=== PATIENT | female | born 1960 | race Caucasian/White ===

== ENCOUNTER 2017-04-19 20:54 | Inpatient (IN) | payer OTHER, BC ==
[~2017-04-19] VITALS: Ht 167.6 cm; Wt 124.2 kg
[2017-04-19 21:09] VITALS: O2SAT 100
[2017-04-19] MEDS ORDERED: DIPHTH/TETANUS/ACEL PERTUSSIS (BOOSTER) 0.5 ML VIAL/PFS IM ONE (21:13)
[2017-04-19] MEDS ORDERED: ceFAZolin 2 GM PREMIX 50 ML ONE (21:13)
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
[2017-04-19] MEDS ORDERED: IOHEXOL 350 MG/ML 10 ML VIAL (for RAD DIAG) IVCONTRAST ONE (21:43)
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
[2017-04-19 21:54] LABS: AUTOMATED NEUTROPHIL # 13.3 TH/MM3 (1.8-7.7); BASOPHIL # 0.1 TH/MM3 (0-0.2); BASOPHIL % 0.7 % (0.0-2.0); EOSINOPHIL # 0.3 TH/MM3 (0-0.4); EOSINOPHIL % 1.7 % (0.0-4.0); HEMOGLOBIN 16.6 GM/DL (11.6-15.3); LYMPH % 16.6 % (9.0-44.0); LYMPHOCYTE # 2.9 TH/MM3 (1.0-4.8); MEAN CELL VOLUME 90.7 FL (80.0-100.0); MEAN CORPUSCULAR HEMOGLOBIN 31.5 PG (27.0-34.0); MEAN CORPUSCULAR HGB CONC 34.7 % (32.0-36.0); MEAN PLATELET VOLUME 11.1 FL (7.0-11.0); MONO % 6.1 % (0.0-8.0); MONOCYTE # 1.1 TH/MM3 (0-0.9); NEUT % 74.9 % (16.0-70.0); PLATELET COUNT 289 TH/MM3 (150-450); RED BLOOD COUNT 5.29 MIL/MM3 (4.00-5.30); RED CELL DISTRIBUTION WIDTH 13.9 % (11.6-17.2); WHITE BLOOD COUNT 17.7 TH/MM3 (4.0-11.0)
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
[2017-04-19 22:04] VITALS: O2SAT 95
[2017-04-19 22:04] LABS: PROTHROMBIN TIME - PATIENT 10.2 SEC (9.8-11.6)
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
[2017-04-19] MEDS ORDERED: LIDOCAINE 2%/EPINEPHrine 1:100,000 20ML MDV NERV BLOCK ONE (22:15)
[2017-04-20] VITALS (8 sets, daily range): BP systolic 110–135; BP diastolic 57–76; PULSE 71–90; RESP 17–19; TEMP 95.5–98.2; O2SAT 95–99
[2017-04-20] MEDS ORDERED: MISCELLANEOUS NURSING INFORMATION XX SCH
[2017-04-20] MEDS ORDERED: CHLORHEXIDINE GLUCONATE 2 % 1 PACK (2 CLOTHS) TOP PRN
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
[2017-04-20] MEDS ORDERED: HYDROmorphone HCL PF 2 MG/ML VIAL IV PUSH PRN (00:15)
[2017-04-20] MEDS: KETOROLAC TROMETHAMINE 30 MG/ML (IVP) VIAL IVP SCH ×4 (00:26→17:15)
[2017-04-20] MEDS: LACTATED RINGER'S 1000 ML INJ 1,000 ML IV SCH ×3 (00:26→17:19)
[2017-04-20] MEDS ORDERED: LACTATED RINGER'S 1000 ML IV PRN (03:30)
[2017-04-20] MEDS ORDERED: POVIDONE IODINE 5% (ANTISEPSIS KIT) 4 APPLICATIONS EACH NARE PRN (03:30)
[2017-04-20] MEDS ORDERED: CHLORHEXIDINE GLUCONATE 2 % 1 PACK (2 CLOTHS) TOPICAL PRN (03:30)
[2017-04-20] MEDS ORDERED: CHLORHEXIDINE GLUCONATE 2 % 1 PACK (2 CLOTHS) TOP SCH (04:00)
[2017-04-20] MEDS ORDERED: LACTULOSE SYRUP 20 GM/30 ML CUP PO PRN (07:00)
[2017-04-20] MEDS: DOCUSATE SODIUM 50 MG/SENNA 8.6 MG TAB PO SCH ×2 (09:00→21:54)
[2017-04-20] MEDS ORDERED: DOCUSATE SODIUM 100 MG CAP PO SCH (09:00)
[2017-04-20 10:49] LABS: AUTOMATED NEUTROPHIL # 4.3 TH/MM3 (1.8-7.7); BASOPHIL % 0.5 % (0.0-2.0); EOSINOPHIL % 0.5 % (0.0-4.0); HEMATOCRIT 37.6 % (35.0-46.0); HEMOGLOBIN 13.1 GM/DL (11.6-15.3); LYMPH % 23.5 % (9.0-44.0); LYMPHOCYTE # 1.6 TH/MM3 (1.0-4.8); MEAN CORPUSCULAR HEMOGLOBIN 31.9 PG (27.0-34.0); MEAN CORPUSCULAR HGB CONC 34.7 % (32.0-36.0); MEAN PLATELET VOLUME 10.1 FL (7.0-11.0); MONO % 13.1 % (0.0-8.0); MONOCYTE # 0.9 TH/MM3 (0-0.9); NEUT % 62.4 % (16.0-70.0); PLATELET COUNT 199 TH/MM3 (150-450); RED BLOOD COUNT 4.09 MIL/MM3 (4.00-5.30); RED CELL DISTRIBUTION WIDTH 13.3 % (11.6-17.2); WHITE BLOOD COUNT 6.9 TH/MM3 (4.0-11.0)
[2017-04-20 11:17] LABS: BICARBONATE 27.1 MEQ/L (21.0-32.0); CALCIUM 8.7 MG/DL (8.5-10.1); CREATININE 0.69 MG/DL (0.50-1.00)
[2017-04-20] MEDS ORDERED: BUPIVACAINE HCL PF 0.25% 30 ML VIAL ONE (11:25)
[2017-04-20] MEDS ORDERED: GENTAMICIN SULFATE 80 MG/2 ML VIAL ONE (11:26)
[2017-04-20] MEDS ORDERED: PHENYLEPH/NS 1000 MCG/10 ML SYR IV ONE (12:00)
[2017-04-20] MEDS ORDERED: ceFAZolin INJ 1,000 MG VIAL IV ONE (12:00)
[2017-04-20] MEDS ORDERED: DEXAMETHASONE SOD PHOS 4 MG/ML VIAL IV ONE (12:00)
[2017-04-20] MEDS ORDERED: LIDOCAINE HCL 1% PF 5 ML SYRINGE OTHER ONE (12:00)
[2017-04-20] MEDS ORDERED: ROCURONIUM INJ 50 MG/5 ML SYRINGE IV PUSH ONE (12:00)
[2017-04-20] MEDS ORDERED: PROPOFOL 200 MG/20 ML AMP IV ONE (12:00)
[2017-04-20] MEDS ORDERED: ONDANSETRON HCL 4 MG/2 ML VIAL IV ONE (12:00)
[2017-04-20] MEDS ORDERED: OMEP20TA93 PO (12:45)
[2017-04-20] MEDS ORDERED: LOVA10TA PO (12:47)
[2017-04-20] MEDS ORDERED: PANTOPRAZOLE SODIUM 40 MG VIAL IV PUSH ONE (13:00)
[2017-04-20] MEDS ORDERED: ceFAZolin 2 GM PREMIX 50 ML ONE (13:18)
[2017-04-20] MEDS ORDERED: LIDOCAINE 1%/EPINEPHrine 1:100,000 SOLN 30 ML VIAL ONE (13:38)
[2017-04-20] MEDS ORDERED: POVIDONE IODINE 10% OINT 30 GM TUBE ONE (14:19)
--- NOTE | 2017-04-20 14:48 | HHI.PR ---
Immediate Post Op Note Procedure Date: Apr 20, 2017 Pre Op Diagnosis: (1) Facial laceration Post Op Diagnosis: (1) Laceration of face with complication (2) Facial laceration Surgeon: Sindhu Aguayo Reuse Technician(s): None. Procedure: Exploration of wound of forehead. Excisional debridement of wound of the forehead with removal of foreign bodies and complex repair, 4 cm. Anesthesia: General Drains: None Patient to: PACU Patient Condition: Good Date/Time of Procedure: SEE SURGICAL CARE RECORD Sindhu Aguayo MD Apr 20, 2017 14:47
--- NOTE | 2017-04-20 16:05 | HHI.PR ---
Immediate Post Op Note Procedure Date: Apr 20, 2017 Pre Op Diagnosis: Left Bimalleolar ankle fracture Post Op Diagnosis: Left Bimalleolar ankle fracture Surgeon: Carmita Sweeney General Technician(s): None Procedure: Left Ankle fracture open reduction internal fixation Findings: None Additional Information: None Complications: None Specimen(s) removed: None Estimated blood loss: Less than 10cc Anesthesia: General Drains: None Patient to: PACU Patient Condition: Carmita Dumont DPM Apr 20, 2017 16:05
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
[2017-04-20] MEDS ORDERED: SUGAMMADEX SODIUM 200 MG/2 ML VIAL IV PUSH ONE (16:08)
[2017-04-20] MEDS ORDERED: BUPIVACAINE HCL PF 0.5% 30 ML VIAL ONE (16:09)
[2017-04-20] MEDS ORDERED: diphenhydrAMINE HCL 25 MG CAP PO PRN (16:15)
[2017-04-20] MEDS ORDERED: Post-op Orders (for Pharmacy) XX ONE (16:15)
--- NOTE | 2017-04-20 16:50 | RADRPT ---
EXAM DATE/TIME: 04/20/2017 15:49 [facility] COMPARISON: ANKLE LEFT LIMITED (AP&LAT), April 19, 2017, 21:11. INDICATIONS : Left ankle fracture. Post op. MEDICAL HISTORY : None. SURGICAL HISTORY : None. ENCOUNTER: Initial ACUITY: 2 days PAIN SCORE: Non-responsive. LOCATION: Left Ankle. FINDINGS: 3 images were recorded digitally in the operating room using C-arm after placement of long lateral fi bular and medial tibial plates. There is also a oblique screw through the medial malleolus. CONCLUSION: Intraoperative images. Stefano Hernandez MD on April 20, 2017 at 16:47 Board Certified Radiologist. This report was verified electronically.
[2017-04-20] MEDS ORDERED: *morphine SULFATE 4 MG/ML PERIprocedure ONLY ONE (16:51)
[2017-04-20] MEDS ORDERED: *MEPERIDINE 25 MG INJ VIAL PERIprocedural Use ONLY ONE (16:54)
[2017-04-20] MEDS ORDERED: DO NOT ADM ANY ANTICOAGULANT DRUGS PRN (17:00)
[2017-04-20] MEDS ORDERED: MIDAZOLAM HCL 2 MG/2 ML VIAL ONE (17:29)
[2017-04-21 03:17] VITALS: BP 121/67; PULSE 75; RESP 18; TEMP 96.7; O2SAT 97
[2017-04-21] MEDS: ENOXAPARIN SODIUM 40 MG/0.4 ML SYRINGE SQ SCH (05:08)
[2017-04-21] MEDS: LACTATED RINGER'S 1000 ML INJ 1,000 ML IV SCH (05:08)
[2017-04-21] MEDS: HYDROmorphone HCL PF 2 MG/ML VIAL IV PUSH PRN ×3 (05:20→21:49)
--- NOTE | 2017-04-21 07:00 | RADRPT ---
EXAM DATE/TIME: 04/21/2017 05:58 [facility] COMPARISON: CHEST SINGLE AP, April 19, 2017, 21:11. INDICATIONS : Pulmonary contusion. MEDICAL HISTORY : None. SURGICAL HISTORY : None. ENCOUNTER: Subsequent ACUITY: 3 days PAIN SCORE: Non-responsive. LOCATION: Bilateral chest FINDINGS: A single view of the chest demonstrates the lungs to be symmetrically aerated without evidence of mas s, infiltrate or effusion. The cardiomediastinal contours are unremarkable. Osseous structures are intact. CONCLUSION: No acute disease. Zora Jarvis MD on April 21, 2017 at 6:58 Board Certified Radiologist. This report was verified electronically.
[2017-04-21 07:34] VITALS: BP 102/55; PULSE 72; RESP 18; TEMP 98.1; O2SAT 97
[2017-04-21 07:46] LABS: AUTOMATED NEUTROPHIL # 7.3 TH/MM3 (1.8-7.7); BASOPHIL % 0.4 % (0.0-2.0); EOSINOPHIL % 0.1 % (0.0-4.0); HEMATOCRIT 34.1 % (35.0-46.0); HEMOGLOBIN 11.7 GM/DL (11.6-15.3); LYMPH % 17.6 % (9.0-44.0); LYMPHOCYTE # 1.8 TH/MM3 (1.0-4.8); MEAN CELL VOLUME 91.9 FL (80.0-100.0); MEAN CORPUSCULAR HEMOGLOBIN 31.5 PG (27.0-34.0); MEAN CORPUSCULAR HGB CONC 34.2 % (32.0-36.0); MEAN PLATELET VOLUME 9.9 FL (7.0-11.0); MONO % 9.6 % (0.0-8.0); NEUT % 72.3 % (16.0-70.0); PLATELET COUNT 190 TH/MM3 (150-450); RED BLOOD COUNT 3.71 MIL/MM3 (4.00-5.30); RED CELL DISTRIBUTION WIDTH 13.5 % (11.6-17.2); WHITE BLOOD COUNT 10.1 TH/MM3 (4.0-11.0)
[2017-04-21 08:06] LABS: BICARBONATE 26.4 MEQ/L (21.0-32.0); CALCIUM 8.3 MG/DL (8.5-10.1); CREATININE 0.65 MG/DL (0.50-1.00)
[2017-04-21] MEDS: DOCUSATE SODIUM 50 MG/SENNA 8.6 MG TAB PO SCH ×2 (09:03→20:29)
[2017-04-21] MEDS: PANTOPRAZOLE SOD 40 MG DELAYED RELEASE TAB PO SCH (09:03)
[2017-04-21] MEDS: POLYETHYLENE GLYCOL 17 GM PKG PO SCH (09:03)
[2017-04-21] MEDS: PRAVASTATIN SOD 10 MG TAB PO SCH (09:05)
--- NOTE | 2017-04-21 09:26 | EKG ---
Date Performed: 04/20/2017 Time Performed: 07:39:32 PTAGE: 56 years EKG: Sinus rhythm LOW QRS VOLTAGE IN PRECORDIAL LEADS ABNORMAL ECG NO PREVIOUS TRACING DOCTOR: Mil Muller Interpretating Date/Time 04/21/2017 09:24:15
[2017-04-21 12:00] VITALS: BP 112/53; PULSE 75; RESP 18; TEMP 97.6; O2SAT 98
[2017-04-21] MEDS: oxyCODONE/ACETAMINOPHEN 5 MG/325 MG TAB PO PRN ×2 (12:04→15:37)
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
[2017-04-21] MEDS ORDERED: MULT1CHW33 (15:46)
[2017-04-21] MEDS ORDERED: CHOL10008 (15:46)
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
[2017-04-21 16:00] VITALS: BP 97/52; PULSE 80; RESP 18; TEMP 95.7; O2SAT 97
[2017-04-21 20:05] VITALS: BP 113/58; PULSE 89; RESP 18; TEMP 98.2; O2SAT 96
[2017-04-21] MEDS: oxyCODONE/ACETAMINOPHEN 7.5 MG/325 MG TAB PO PRN (20:29)
[2017-04-21 23:46] VITALS: BP 117/55; PULSE 86; RESP 18; TEMP 96.8; O2SAT 95
[2017-04-22] VITALS (8 sets, daily range): BP systolic 104–120; BP diastolic 58–73; PULSE 80–89; RESP 17–20; TEMP 96–99.3; O2SAT 95–99
[2017-04-22] MEDS: HYDROmorphone HCL PF 2 MG/ML VIAL IV PUSH PRN ×2 (00:59→23:53)
[2017-04-22] MEDS: ENOXAPARIN SODIUM 40 MG/0.4 ML SYRINGE SQ SCH (05:58)
[2017-04-22] MEDS: oxyCODONE/ACETAMINOPHEN 7.5 MG/325 MG TAB PO PRN ×3 (06:59→20:44)
[2017-04-22] MEDS: PANTOPRAZOLE SOD 40 MG DELAYED RELEASE TAB PO SCH (08:04)
[2017-04-22] MEDS: DOCUSATE SODIUM 50 MG/SENNA 8.6 MG TAB PO SCH ×2 (08:04→20:45)
[2017-04-22] MEDS: POLYETHYLENE GLYCOL 17 GM PKG PO SCH (08:04)
[2017-04-22] MEDS: PRAVASTATIN SOD 10 MG TAB PO SCH (08:05)
--- NOTE | 2017-04-22 11:23 | MP ---
cc: AYSHA OSBORNE M.D. DATE OF SURGERY 04/20/2017 PREOPERATIVE DIAGNOSIS Complex laceration of forehead. POSTOPERATIVE DIAGNOSES 1. Complex laceration of forehead. 2. Foreign bodies in wound of forehead. PROCEDURE 1. Excisional debridement with complex repair of a 2.5 cm defect of the left side of forehead. 2. Removal of foreign bodies from the left side of forehead. ANESTHESIA General. SURGEON Aysha Osborne MD INDICATIONS A 56-year-old female with injury to her forehead as noted above. FINDINGS The defect measured 2.5 cm, which necessitated elliptical excision measuring 4 cm in length. The area was excisionally debrided. The muscle appeared to be mostly intact along with the galea. There were some pieces of glass that were removed and there appeared to be no additional glass once the wound was irrigated and explored. OPERATIVE TIME Approximately 35 minutes. PROCEDURE The patient was seen preoperatively. The patient was then brought into the operating room, placed in a supine position. Her identity was checked against the arm band and the consent form, site and side confirmed, time-out called prior to beginning the procedure. This procedure was performed concomitantly with podiatrists. The forehead was prepped with Betadine and draped in the usual sterile fashion. Lidocaine with epinephrine 1% was injected into all areas that were going to be operated on. Once the anesthetic and the adrenaline had taken effect a #15 blade was used to excise the defect along with some additional tissue to make an ellipse. This was outlined with a marking pen prior to excision. The incision was made with a 15 blade and dissection was continued with a scissor. The muscle and galeal layer were inspected and found to be intact. The wound was copiously irrigated with saline. The debris and foreign bodies were removed. Bits of hair were also present and this was removed. The wound was then closed in layers with 5-0 Vicryl to the subcutaneous layer and 6-0 Prolene to the skin. Once it was completed the area was cleansed of Betadine and blood and dressed with povidone-iodine ointment and a dry dressing using Telfa. The patient was then given back to the care of the OR staff for the continuance and finishing of the other surgery taking place. MD CAROL Singh/MEHRAN /2:41 PM /11:13 AM
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
[2017-04-22] MEDS: oxyCODONE/ACETAMINOPHEN 5 MG/325 MG TAB PO PRN (12:30)
[2017-04-22] MEDS ORDERED: ENOX40P SQ (12:43)
--- NOTE | 2017-04-22 12:57 | HHI.PR ---
Subjective Remarks Patient seen bedside post op day 1. Ports [id number] pain to the left lower extremity states is well controlled. Denies any calf pain. States she is feeling numbness and tingling into the left lower extremity. Objective Vital Signs Date Time Temp Pulse Resp B/P (MAP) Pulse Ox O2 Delivery O2 Flow Rate FiO2 04/22/17 09:06 98 Nasal Cannula 2.00 04/22/17 08:00 99.0 80 20 107/58 (74) 97 04/22/17 02:23 95 Nasal Cannula 2.00 04/21/17 23:46 96.8 86 18 117/55 (75) 95 04/21/17 20:05 98.2 89 18 113/58 (76) 96 04/21/17 16:00 95.7 80 18 97/52 (67) 97 I/O 04/21/17 04/21/17 04/21/17 04/22/17 04/22/17 04/22/17 07:00 15:00 23:00 07:00 15:00 23:00 Intake Total 1493 ml 1000 ml 480 ml 480 ml Balance 1493 ml 1000 ml 480 ml 480 ml Intake Oral 360 ml 720 ml 480 ml 480 ml IV Total 1133 ml 280 ml # Voids 3 3 4 2 # Bowel Movements 0 0 0 0 Result Diagram: 04/21/17 0555 04/21/17 0555 Imaging Last Impressions Chest X-Ray 04/21/17 0600 Signed Impressions: Service Date/Time: Friday, April 21, 2017 05:58 - CONCLUSION: No acute disease. Zora Jarvis MD Ankle X-Ray 04/20/17 0000 Signed Impressions: Service Date/Time: Thursday, April 20, 2017 15:49 - CONCLUSION: Intraoperative images. Stefano Hernandez MD Maxillofacial CT 04/19/172118 Signed Impressions: Service Date/Time: Wednesday, April 19, 2017 21:38 - CONCLUSION: No acute fracture of the facial bones. Soft tissue swelling over the right forehead. There is some debris overlying the left forehead. Az Cast MD Head CT 04/19/172118 Signed Impressions: Service Date/Time: Wednesday, April 19, 2017 21:38 - CONCLUSION: 1. Unremarkable CT scan of the brain. 2. Soft tissue swelling overlying the right forehead. 3. There is some debris either on or within the skin along the left forehead. Az Cast MD Chest CT 04/19/172118 Signed Impressions: Service Date/Time: Wednesday, April 19, 2017 21:48 - CONCLUSION: 1. No acute intrathoracic disease. Az Cast MD Cervical Spine CT 04/19/172118 Signed Impressions: Service Date/Time: Wednesday, April 19, 2017 21:38 - CONCLUSION: 1. No acute bony fracture. 2. Mild broad-based bulging C5-6. Az Cast MD Abdomen/Pelvis CT 04/19/172118 Signed Impressions: Service Date/Time: Wednesday, April 19, 2017 21:48 - CONCLUSION: 1. Scattered diverticulosis of the descending and sigmoid colon. 2. Hiatal hernia at the GE junction.. 3. No acute pathology. Az Cast MD Pelvis X-Ray 04/19/17 0000 Signed Impressions: Service Date/Time: Wednesday, April 19, 2017 21:11 - CONCLUSION: No acute bony fracture or joint dislocation. Az Cast MD Procedures Status post left ankle ORIF Other Results Laboratory Tests Test 04/21/17 05:55 White Blood Count 10.1 TH/MM3 Red Blood Count 3.71 MIL/MM3 Hemoglobin 11.7 GM/DL Hematocrit 34.1 % Mean Corpuscular Volume 91.9 FL Mean Corpuscular Hemoglobin 31.5 PG Mean Corpuscular Hemoglobin Concent 34.2 % Red Cell Distribution Width 13.5 % Platelet Count 190 TH/MM3 Mean Platelet Volume 9.9 FL Neutrophils (%) (Auto) 72.3 % Lymphocytes (%) (Auto) 17.6 % Monocytes (%) (Auto) 9.6 % Eosinophils (%) (Auto) 0.1 % Basophils (%) (Auto) 0.4 % Neutrophils # (Auto) 7.3 TH/MM3 Lymphocytes # (Auto) 1.8 TH/MM3 Monocytes # (Auto) 1.0 TH/MM3 Eosinophils # (Auto) 0.0 TH/MM3 Basophils # (Auto) 0.0 TH/MM3 CBC Comment DIFF FINAL Differential Comment Blood Urea Nitrogen 12 MG/DL Creatinine 0.65 MG/DL Random Glucose 88 MG/DL Calcium Level 8.3 MG/DL Sodium Level 143 MEQ/L Potassium Level 3.7 MEQ/L Chloride Level 110 MEQ/L Carbon Dioxide Level 26.4 MEQ/L Anion Gap 7 MEQ/L Estimat Glomerular Filtration Rate 94 ML/MIN Objective Remarks left lower extremity with splint intact. Active passive dorsiflexion of digits x5 of left foot. Capillary refill time of 3 seconds within normal limits to left foot. Gross sensation intact. Medications and IVs Current Medications Medications (Trade) Dose Ordered Sig/Robin Route Start Time Stop Time Status Last Admin (Dilaudid Pf Inj) 0.5 mg Q3H PRN IV PUSH 04/20/17 00:15 04/22/17 00:59 (Rebecca-Colace) 1 tab BID PO 04/20/17 09:00 04/22/17 08:04 (Lactulose Liq) 30 ml DAILY PRN PO 04/20/17 07:00 04/22/17 08:04 (Miralax) 17 gm DAILY PO 04/21/17 09:00 04/22/17 08:04 (Protonix) 40 mg DAILY PO 04/21/17 09:00 04/22/17 08:04 (Lovenox Inj) 40 mg Q24H SQ 04/21/17 05:00 04/22/17 05:58 (Benadryl) 25 mg Q6H PRN PO 04/20/17 16:15 (Pravachol) 10 mg DAILY PO 04/21/17 09:00 04/22/17 08:05 (Percocet 5-325 Mg) 1 tab Q4H PRN PO 04/21/17 07:45 04/22/17 12:30 (Percocet 7.5-325 Mg) 1 tab Q4H PRN PO 04/21/17 07:45 04/22/17 06:59 Assessment and Plan Assessment and Plan 56-year-old female with bimalleolar fracture left lower extremity Patient evaluated and examined with all questions answered Ok to DC per podiatry NWB LLE DVT PPX as outpatient 40mg Lovenox subcutaneous q daily x2 weeks with 1 refill PT to eval and treat and make recommendations Patient is wanting to go stay with family in [place] spoke to care management Concerned patient would have lack of follow Patient to follow up with myself Dr. Sweeney in 2 weeks Spoke to care management about updating me on patients rosalinao Carmita Sweeney DPM Apr 22, 2017 12:57
--- NOTE | 2017-04-22 14:57 | HHI.PR ---
Subjective Remarks The patient reports feeling well. Objective Vital Signs Date Time Temp Pulse Resp B/P (MAP) Pulse Ox O2 Delivery O2 Flow Rate FiO2 04/22/17 12:00 96.0 80 20 120/62 (81) 99 04/22/17 09:06 98 Nasal Cannula 2.00 04/22/17 08:00 99.0 80 20 107/58 (74) 97 04/22/17 02:23 95 Nasal Cannula 2.00 04/21/17 23:46 96.8 86 18 117/55 (75) 95 04/21/17 20:05 98.2 89 18 113/58 (76) 96 04/21/17 16:00 95.7 80 18 97/52 (67) 97 I/O 04/21/17 04/21/17 04/21/17 04/22/17 04/22/17 04/22/17 07:00 15:00 23:00 07:00 15:00 23:00 Intake Total 1493 ml 1000 ml 480 ml 480 ml Balance 1493 ml 1000 ml 480 ml 480 ml Intake Oral 360 ml 720 ml 480 ml 480 ml IV Total 1133 ml 280 ml # Voids 3 3 4 2 # Bowel Movements 0 0 0 0 Result Diagram: 04/21/17 0555 04/21/17 0555 Procedures Status post left ankle ORIF Objective Remarks There is no evidence of infection. The sutures are intact. There is no evidence of bleeding. Assessment and Plan Assessment and Plan Impression: The facial wounds are healing well. Plan: The patient is advised that the sutures should be removed Saturday or Saturday of this week. She is to follow-up in my clinic as needed. Sindhu Aguayo MD Apr 22, 2017 14:57
[2017-04-22] MEDS: MAGNESIUM HYDROXIDE SUSP 30 ML CUP PO SCH (20:44)
[2017-04-23] VITALS (7 sets, daily range): BP systolic 95–136; BP diastolic 58–65; PULSE 80–91; RESP 17–18; TEMP 96.3–99.1; O2SAT 93–100
[2017-04-23] MEDS: HYDROmorphone HCL PF 2 MG/ML VIAL IV PUSH PRN (05:18)
[2017-04-23] MEDS: ENOXAPARIN SODIUM 40 MG/0.4 ML SYRINGE SQ SCH (05:32)
[2017-04-23] MEDS: oxyCODONE/ACETAMINOPHEN 7.5 MG/325 MG TAB PO PRN ×4 (07:35→21:02)
[2017-04-23] MEDS: POLYETHYLENE GLYCOL 17 GM PKG PO SCH (09:00)
[2017-04-23] MEDS: MAGNESIUM HYDROXIDE SUSP 30 ML CUP PO SCH ×2 (09:00→21:03)
[2017-04-23] MEDS: PRAVASTATIN SOD 10 MG TAB PO SCH (09:05)
[2017-04-23] MEDS: PANTOPRAZOLE SOD 40 MG DELAYED RELEASE TAB PO SCH (09:05)
[2017-04-23] MEDS: LACTULOSE SYRUP 20 GM/30 ML CUP PO SCH (09:05)
[2017-04-23] MEDS: DOCUSATE SODIUM 50 MG/SENNA 8.6 MG TAB PO SCH ×2 (09:05→21:02)
[2017-04-23] MEDS ORDERED: OXYC1TAB63 PO (12:43)
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
[2017-04-24 00:50] VITALS: BP 103/60; PULSE 86; RESP 17; TEMP 99; O2SAT 94
[2017-04-24] MEDS: oxyCODONE/ACETAMINOPHEN 7.5 MG/325 MG TAB PO PRN ×6 (01:18→23:31)
[2017-04-24] MEDS: ENOXAPARIN SODIUM 40 MG/0.4 ML SYRINGE SQ SCH (05:35)
[2017-04-24 08:00] VITALS: BP 118/58; PULSE 90; RESP 16; TEMP 96.4; O2SAT 99
[2017-04-24] MEDS: MAGNESIUM HYDROXIDE SUSP 30 ML CUP PO SCH ×2 (08:06→19:32)
[2017-04-24] MEDS: LACTULOSE SYRUP 20 GM/30 ML CUP PO SCH (08:06)
[2017-04-24] MEDS: DOCUSATE SODIUM 50 MG/SENNA 8.6 MG TAB PO SCH ×2 (08:07→19:33)
[2017-04-24] MEDS: POLYETHYLENE GLYCOL 17 GM PKG PO SCH (08:07)
[2017-04-24] MEDS: PANTOPRAZOLE SOD 40 MG DELAYED RELEASE TAB PO SCH (08:07)
[2017-04-24] MEDS: PRAVASTATIN SOD 10 MG TAB PO SCH (08:07)
[2017-04-24 12:00] VITALS: BP 126/66; PULSE 80; RESP 16; TEMP 97.3; O2SAT 96
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
[2017-04-24 16:00] VITALS: BP 121/59; PULSE 89; RESP 16; TEMP 97; O2SAT 96
[2017-04-24 19:06] VITALS: BP 115/55; PULSE 86; RESP 18; TEMP 98.1; O2SAT 98
[2017-04-24 21:50] VITALS: O2SAT 98
[2017-04-25] VITALS (7 sets, daily range): BP systolic 100–126; BP diastolic 55–73; PULSE 75–90; RESP 16–18; TEMP 96.7–98.1; O2SAT 94–98
[2017-04-25] MEDS: oxyCODONE/ACETAMINOPHEN 7.5 MG/325 MG TAB PO PRN ×4 (04:28→21:21)
[2017-04-25] MEDS: ENOXAPARIN SODIUM 40 MG/0.4 ML SYRINGE SQ SCH (04:29)
[2017-04-25] MEDS: PANTOPRAZOLE SOD 40 MG DELAYED RELEASE TAB PO SCH (09:03)
[2017-04-25] MEDS: DOCUSATE SODIUM 50 MG/SENNA 8.6 MG TAB PO SCH ×2 (09:03→21:20)
[2017-04-25] MEDS: PRAVASTATIN SOD 10 MG TAB PO SCH (09:03)
[2017-04-25] MEDS: LACTULOSE SYRUP 20 GM/30 ML CUP PO SCH (09:05)
[2017-04-25] MEDS: MAGNESIUM HYDROXIDE SUSP 30 ML CUP PO SCH ×2 (09:05→21:00)
[2017-04-25] MEDS: POLYETHYLENE GLYCOL 17 GM PKG PO SCH (09:05)
--- NOTE | 2017-04-25 15:05 | RADRPT ---
EXAM DATE/TIME: 04/25/2017 13:41 [facility] COMPARISON: No previous studies available for comparison. INDICATIONS : Bilateral leg edema. MEDICAL HISTORY : Gastroesophageal reflux disease. Chronic back pain. SURGICAL HISTORY : Tonsillectomy. ENCOUNTER: Initial ACUITY: 4 - 6 days PAIN SCORE: 5/10 LOCATION: Bilateral leg. TECHNIQUE: Venous ultrasound of the left and right leg was performed from the inguinal ligament to the proximal calf. Real-time, color Doppler and spectral tracing, compression and augmentation techniques were us ed. FINDINGS: RIGHT LEG: There is normal compressibility of the deep venous system from the inguinal region to the proximal ca lf. No echogenic clot is seen in the lumen of the common femoral, femoral, popliteal, and posterior tibial veins. There is a normal response of the venous system to proximal and distal augmentation an d respiration. LEFT LEG: There is normal compressibility of the deep venous system from the inguinal region to the proximal ca lf. No echogenic clot is seen in the lumen of the common femoral, femoral, popliteal, and posterior tibial veins. There is a normal response of the venous system to proximal and distal augmentation an d respiration. CONCLUSION: No evidence of DVT. Kal Mesa MD on April 25, 2017 at 15:03 Board Certified Radiologist. This report was verified electronically.
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
[2017-04-26] MEDS: oxyCODONE/ACETAMINOPHEN 7.5 MG/325 MG TAB PO PRN ×3 (04:39→12:45)
[2017-04-26] MEDS: ENOXAPARIN SODIUM 40 MG/0.4 ML SYRINGE SQ SCH (04:41)
[2017-04-26 08:00] VITALS: BP 121/57; PULSE 80; RESP 17; TEMP 97.1; O2SAT 96
[2017-04-26] MEDS: PANTOPRAZOLE SOD 40 MG DELAYED RELEASE TAB PO SCH (08:31)
[2017-04-26] MEDS: PRAVASTATIN SOD 10 MG TAB PO SCH (08:31)
[2017-04-26] MEDS: DOCUSATE SODIUM 50 MG/SENNA 8.6 MG TAB PO SCH (08:31)
[2017-04-26] MEDS: MAGNESIUM HYDROXIDE SUSP 30 ML CUP PO SCH (08:33)
[2017-04-26] MEDS: LACTULOSE SYRUP 20 GM/30 ML CUP PO SCH (08:33)
[2017-04-26] MEDS: POLYETHYLENE GLYCOL 17 GM PKG PO SCH (08:34)
[2017-04-26 12:00] VITALS: BP 147/56; PULSE 86; RESP 18; TEMP 96.5; O2SAT 96
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
[2017-04-26] MEDS ORDERED: REMOVE OLD PATCH T-DERMAL SCH (14:00)
[2017-04-26] MEDS ORDERED: LIDOCAINE HCL 5% PATCH T-DERMAL SCH (14:00)
[2017-04-26 16:00] VITALS: BP 130/62; PULSE 88; RESP 17; TEMP 97.4; O2SAT 95
[2017-04-26] MEDS: oxyCODONE/ACETAMINOPHEN 5 MG/325 MG TAB PO PRN (16:29)
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
== END 2017-04-26 18:00 | DRG 494 ==
LOC: NEPE 20:54 → NEDA 23:51 → OBSVTOIN 23:56 → N06B 04-20 00:45
PROVIDERS: ADMIT Surgery Trauma Surgery; ATTEND Surgery Trauma Surgery
PROC: 0HQ1XZZ Repair Face Skin, External Approach (ICD-10-PCS; 2017-04-19)
PROC: 0HC1XZZ Extirpation of Matter from Face Skin, External Approach (ICD-10-PCS; 2017-04-19)
PROC: 0HB1XZZ Excision of Face Skin, External Approach (ICD-10-PCS; 2017-04-20)
PROC: 0HC1XZZ Extirpation of Matter from Face Skin, External Approach (ICD-10-PCS; 2017-04-20)
PROC: 0HQ1XZZ Repair Face Skin, External Approach (ICD-10-PCS; 2017-04-20)
PROC: 0QSK04Z Reposition Left Fibula with Internal Fixation Device, Open Approach (ICD-10-PCS; principal; 2017-04-20 13:09)
PROC: 0QSH04Z Reposition Left Tibia with Internal Fixation Device, Open Approach (ICD-10-PCS; 2017-04-20 13:09)
DX: S82.842A Displaced bimalleolar fracture of left lower leg, initial encounter for closed fracture (principal); S06.0X0A Concussion without loss of consciousness, initial encounter; S01.82XA Laceration with foreign body of other part of head, initial encounter; S20.01XA Contusion of right breast, initial encounter; V43.52XA Car driver injured in collision with other type car in traffic accident, initial encounter; Y92.410 Unspecified street and highway as the place of occurrence of the external cause
CPT/HCPCS: 12054; 29515; 70450; 70486; 71045; 71260; 72125; 72170; 73600; 74177; 76000; 80048; 85025; 85610; 85730; 86850; 86900; 86901; 90471; 90715; 93005; 93970; 94150; 96374; 96375; C1713; C9113; J0690; J1100; J1170; J1580; J1650; J1885; J2175; J2250; J2270; J2370; J2405; J3010; J7120; Q9967